=== PATIENT | male | born 1945 | race Caucasian/White ===

== ENCOUNTER 2016-04-19 13:46 | Emergency (ER) | payer MEDICARE, OTHER ==
[~2016-04-19] VITALS: Wt 55.0 kg
[2016-04-19] MEDS ORDERED: ONDANSETRON (ODT) 4 MG TAB ODT STA (15:34)
--- NOTE | 2016-04-19 15:56 | ERD ---
ER Documentation Chief Complaint Date/Time DATE: 04/19/16 TIME: 15:48 Chief Complaint LOW BACK PAIN NON TRAUMATIC FOR FEW DAYS. RADIATING TO LEFT LEG. HPI Patient is a very pleasant 70-year-old male who presents with low back pain for the last 5 years which has been intermittent but now constant over the last several days. He says at this time and is radiating down the left leg. It is worse when he stands up and better when he lies supine. He denies any fever, back trauma, abdominal pain, nausea, vomiting, diarrhea, dysuria, or hematuria. He denies any previous episodes that were this intense. He has not seen his primary care physician about his back pain previously. He denies any bowel or bladder incontinence and states when he is sitting he does not have any weakness or paresthesias. ROS All systems reviewed and are negative except as per history of present illness. Allergies Allergies: Coded Allergies: No Known Drug Allergies (Verified Allergy, Unknown, 04/19/16) FmHx Family History: No coronary disease Physical Exam Vitals Vital Signs Date Time Temp Pulse Resp B/P Pulse Ox O2 Delivery O2 Flow Rate FiO2 04/19/16 14:04 98.7 65 20 165/74 99 Physical Exam Const: [] Well-developed well-nourished male sitting in a wheelchair in no acute distress Head: Atraumatic normocephalic Eyes: Normal Conjunctiva ENT: Normal External Ears, Nose and Mouth. Neck: Full range of motion..~ No meningismus. Resp: Clear to auscultation bilaterally Cardio: Regular rate and rhythm, no murmurs Abd: Soft, non tender, non distended. Normal bowel sounds Skin: No petechiae or rashes Back: No midline or flank tenderness, patient has significant pain with axial loading which radiates down the left leg Ext: No cyanosis, or edema Neur: Awake and alert oriented 3 with a GCS of 15, moves all extremities equally, nonfocal Psych: Normal Mood and Affect Results 24 hrs Current Medications Medications (Trade) Dose Ordered Sig/Kimberley Route PRN Reason Start Time Stop Time Status Last Admin Dose Admin Dexamethasone (Decadron) 6 mg ONCE ONCE IM 04/19/16 16:00 04/19/16 16:01 DC 04/19/16 15:51 Morphine Sulfate (morphine) 2 mg ONCE ONCE IM 04/19/16 16:00 04/19/16 16:01 DC 04/19/16 15:51 Ondansetron HCl (Zofran Odt) 4 mg ONCE STAT ODT 04/19/16 15:34 04/19/16 15:36 DC 04/19/16 15:52 Procedures/MDM Differential includes but is not limited to musculoskeletal back pain, herniated disc, pinched nerve, sciatica CT scan confirms herniated disc at L5-S1 consistent with patient's symptoms. 1645: Patient feels much better after the medications. He appears stable for discharge home. 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 I will refer him to outpatient physical therapy as well. Departure Diagnosis: Primary Impression: Herniated disc Spinal region: lumbosacral Qualified Code: M51.27 - Herniation of intervertebral disc of lumbosacral region Condition: Good Patient Instructions: Herniated Intervertebral Disc, Using a Walker [facility] Additional Instructions: Take the medications as prescribed and use the walker at all times while you are back is hurting to prevent any falls. Please follow-up with orthopedics as an outpatient. He will need physical therapy to be scheduled in approximately 1 -2 weeks for your back is no longer as painful as it is today. You may need a refill on your pain medication so please schedule follow-up appointment as well with your primary care physician. Return to the emergency department if at any time he develop any new or worsening symptoms. JOSUE CRUZ Apr 19, 2016 15:56
[2016-04-19] MEDS ORDERED: morphine 10 MG INJ IM ONE (16:00)
[2016-04-19] MEDS ORDERED: DEXAMETHASONE 10 MG/ML 1 ML INJ IM ONE (16:00)
--- NOTE | 2016-04-19 16:18 | RADRPT ---
PROCEDURE: CT Lumbar Spine. CLINICAL INDICATION: Lower back pain radiating down left leg. TECHNIQUE: Noncontrast CT of the lumbar spine was performed with multiplanar reformatted images gen erated from the axial acquired data. The administered radiation dose was CTDI vol = 6.91 mGy, DLP = 166.29 mGy-cm. COMPARISON: There are no similar studies submitted for comparison. FINDINGS: There is normal lumbar lordosis. The vertebral body heights are maintained. There is normal alignment. There is no destructive osseous lesion. There is no acute fracture. There is a rudimentary right L1 transverse process. The discs are normal in height. T12-L1 : There is no disc herniation, spinal canal, or foraminal stenosis. L1-L2 : There is no disc herniation, spinal canal, or foraminal stenosis. L2-L3 : There is no disc herniation, spinal canal, or foraminal stenosis. L3-L4 : There is a 2 mm broad-based disk bulge with mild bilateral facet arthropathy without spinal canal or bilateral foraminal stenosis. L4-L5 : There is a 3 mm circumferential disk bulge with mild bilateral facet arthropathy without spi nal canal or bilateral foraminal stenosis. L5-S1 : There is a 2 mm circumferential disk bulge with mild bilateral facet arthropathy without spi nal canal stenosis. There is mild right without left foraminal stenosis. The sacroiliac joints are intact. There are prominent left sacroiliac joint osteophytes. There is a 1 mm nonobstructing left renal calculus. IMPRESSION: 1. No acute fracture. 2. Multilevel degenerative changes most pronounced at L5-S1 where there is a circumferential disk bu lge with mild right foraminal stenosis. Further findings as detailed above. RPTAT: HVF .Rogelio Chinchilla MD, MD Date Time Electronically viewed and signed by .Rogelio Chinchilla MD, on 04/19/2016 16:18 .F/
[2016-04-19] MEDS ORDERED: PRED20TA PO (16:49)
[2016-04-19] MEDS ORDERED: OXYC-279 PO (16:49)
[2016-04-19] MEDS ORDERED: ONDA4TAB8 PO (16:50)
[2016-04-19] MEDS ORDERED: ETOD300C26 PO (16:50)
[2016-04-19] MEDS ORDERED: WALK1EAC23 MC (16:51)
== END 2016-04-19 17:25 | disposition home or self-care (01) ==
LOC: FTE 13:46
DX: M51.27 Other intervertebral disc displacement, lumbosacral region (principal)
CPT/HCPCS: 72131; 96372; 99285; J1100; J2270